=== PATIENT | female | born 1940 | race Caucasian/White ===

== ENCOUNTER 2021-04-06 20:44 | Observation (INO) | payer OTHER ==
[2021-04-06 21:54] LABS: Absolute Lymphocytes (CBC) 1.2 K/uL (0.7-4.9); Basophils % 0.4 % (0-1.3); Hematocrit 21.6 % (36.0-45.0); Lymphocytes % 25.4 % (15.3-44.8); MPV 7.8 fL (7.6-11.3); RBC Red Blood Cell Count 2.41 M/uL (3.86-4.86)
[2021-04-06 22:00] LABS: Urine Blood Negative (Negative); Urine Glucose Negative (Negative); Urine Protein Trace (Negative); Urine Specific Gravity 1.025 (1.005-1.030); Urine pH 5.5 (5.0-7.0)
[2021-04-06 22:09] LABS: Urine Bacteria 20-50 /HPF (<20); Urine RBC <5 /HPF (NONE SEEN)
[2021-04-06 22:09] LABS: ALT/SGPT 23 U/L (12-78); AST/SGOT 15 U/L (15-37); Albumin 3.1 g/dL (3.4-5.0); Alkaline Phosphatase 74 U/L (45-117); BUN Blood Urea Nitrogen 19 mg/dL (7-18); Bicarbonate 26 mmol/L (21-32); Bilirubin Direct < 0.1 mg/dL (0-0.2); Bilirubin Total 0.2 mg/dL (0.2-1.0); Glucose Level 102 mg/dL (74-106); Lipase 239 U/L (73-393); Potassium 4.1 mmol/L (3.5-5.1); Protein, Total 6.9 g/dL (6.4-8.2); Sodium Level 140 mmol/L (136-145)
--- NOTE | 2021-04-07 | ER ---
Nurse's Notes Formerly [facility] Name: Darlin Negrete Age: 80 yrs Sex: Female : 1940 Arrival Date: 04/06/2021 Time: 20:53 Bed 17 Private MD: Diagnosis: GI Bleed/ Gastrointestinal hemorrhage, unspecified;Anemia, unspecified Presentation: 04/06 20:57 Chief complaint: Patient states: right lower abdominal pain that started a few days em ago, recently had an US that showed cyst on kidney, unknown which side, denies N/V or fever. Coronavirus screen: Vaccine status: Patient reports receiving the 2nd dose of the covid vaccine. Ebola Screen: Patient negative for fever greater than or equal to 101.5 degrees Fahrenheit, and additional compatible Ebola Virus Disease symptoms Patient denies exposure to infectious person. Patient denies travel to an Ebola-affected area in the 21 days before illness onset. No symptoms or risks identified at this time. Initial Sepsis Screen: Does the patient meet any 2 criteria? No. Patient's initial sepsis screen is negative. Does the patient have a suspected source of infection? No. Patient's initial sepsis screen is negative. Risk Assessment: Do you want to hurt yourself or someone else? Patient reports no desire to harm self or others. Onset of symptoms was April 06, 2021. 20:57 Method Of Arrival: Ambulatory em 20:57 Acuity: MELANIE 3 em Historical: - Allergies: 21:01 No Known Allergies; em - Home Meds: 21:01 atorvastatin 80 mg oral tab 1 tab once daily [Active]; metoprolol tartrate 25 mg Oral em tab 1 tab once daily [Active]; - PMHx: 21:01 Hypertensive disorder; em - PSHx: 21:01 None; em - Immunization history:: Adult Immunizations up to date, Client reports receiving the 2nd dose of the Covid vaccine. - Social history:: Smoking status: Patient denies any tobacco usage or history of. Screenin:00 Abuse screen: Denies threats or abuse. Nutritional screening: No deficits noted. kc4 Tuberculosis screening: No symptoms or risk factors identified. Never had TB. Possible symptoms: None Risk factors: None. Fall Risk None identified. No fall in past 12 months (0 pts). No secondary diagnosis (0 pts). IV access (20 points). Ambulatory Aid- None/Bed Rest/Nurse Assist (0 pts). Gait- Normal/Bed Rest/Wheelchair (0 pts) Mental Status- Oriented to own ability (0 pts). Total Foster Fall Scale indicates No Risk (0-24 pts). Assessment: 22:29 General: Appears in no apparent distress. comfortable, well developed, well nourished, kc4 Behavior is calm, cooperative, appropriate for age, Reports Denies fever, feeling ill, fatigue, chills. Pain: Complains of pain in abdomen Pain does not radiate. Pain at worst was 4 out of 10 on a pain scale. level that patient reports is acceptable is 4 out of 10 on a pain scale. Quality of pain is described as dull, sharp, Pain began gradually, Is intermittent, Alleviated by medications, rest, repositioning, relaxation, Aggravated by increased activity, repositioning, Noted to be Current management Goal of pain control is to. Neuro: No deficits noted. Cardiovascular: No deficits noted. Respiratory: No deficits noted. GI: Bowel sounds present X 4 quads. Abd is soft Abdomen is tender to palpation in right lower quadrant. : No deficits noted. EENT: No deficits noted. Derm: No deficits noted. Derm: No deficits noted. Musculoskeletal: No deficits noted. Vital Signs: 20:57 BP 107 / 56; Pulse 81; Resp 18; Temp 98.0; Pulse Ox 100% on R/A; Weight 63.5 kg; Height em 5 ft. 5 in. (165.10 cm); 22:45 BP 119 / 72; Pulse 72; Resp 18; Temp 98.8(O); Pulse Ox 100% on R/A; Pain 3/10; kc4 04/07 00:01 BP 118 / 56; Pulse 70; Resp 18; Temp 98.8; Pulse Ox 100% on R/A; Pain 3/10; kc4 12:18 BP 127 / 75; Pulse 77; Resp 17; Temp 98.7; Pulse Ox 100% ; tr6 04/06 20:57 Body Mass Index 23.30 (63.50 kg, 165.10 cm) em ED Course: 04/06 20:53 Patient arrived in ED. cf2 21:01 Triage completed. em 21:01 Arm band placed on. em 21:10 Clinton Ozuna PA is PHCP. cp 21:10 Satya Leon MD is Attending Physician. cp 21:25 Maida Muro is Primary Nurse. kc4 22:14 Urine Culture Sent. kc4 22:15 Inserted saline lock: 20 gauge in right antecubital area, using aseptic technique. kc4 22:43 CT Abd/Pelvis - IV Contrast Only In Process Unspecified. EDMS 22:52 Patient has correct armband on for positive identification. Placed in gown. Bed in low kc4 position. Call light in reach. Side rails up X 1. 23:30 No provider procedures requiring assistance completed. kc4 04/07 00:53 Saeed Lucio DO is Hospitalizing Provider. cp 01:28 Troponin (emerg Dept Use Only) Sent. kc4 01:28 Magnesium Sent. kc4 Administered Medications: 01:03 Not Given (Physician Discretion): ProTONIX (pantoprazole) 8 mg/hr IV at 25 ml/hr la1 continuous; (Standard dilution is 80 mg in 250 mL NS) 01:28 Drug: ProTONIX (pantoprazole) 40 mg Route: IVP; Site: right antecubital; kc4 Output: 04/06 22:00 Urine: 400ml (Voided); Total: 400ml. kc4 Outcome: 04/07 00:00 Discharge ordered by MD. cp 00:54 Decision to Hospitalize by Provider. cp 13:48 Patient left the ED. iw Signatures: Dispatcher [employer] EDAR Charli Rod, RN RN Supriya Gandhi RN RN iw Clinton Ozuna PA PA cp Alexandra Ruvalcaba 2 Camryn Vaca RN RN tr6 Maida Muro kc4 Donato Francisco [facility]
--- NOTE | 2021-04-07 00:01 | EDPHYS ---
Physician Documentation [facility] Name: Darlin Negrete Age: 80 yrs Sex: Female : 1940 Arrival Date: 04/06/2021 Time: 20:53 Bed 17 Private MD: ED Physician Satya Leon HPI: 04/06 22:00 This 80 yrs old Female presents to ER via Ambulatory with complaints of cp Abdominal Pain. 22:00 The patient presents with abdominal pain right lower quadrant. cp 22:00 Onset: The symptoms/episode began/occurred few days ago. cp 22:00 The symptoms radiate to the right flank. Associated signs and symptoms: Pertinent cp negatives: nausea and vomiting, blood in stools, constipation, diarrhea, dysuria, fever. The symptoms are described as waxing/waning. Severity of pain: in the emergency department the pain has resolved and did so earlier today. Historical: - Allergies: 21:01 No Known Allergies; em - Home Meds: 21:01 atorvastatin 80 mg oral tab 1 tab once daily [Active]; metoprolol tartrate 25 mg Oral em tab 1 tab once daily [Active]; - PMHx: 21:01 Hypertensive disorder; em - PSHx: 21:01 None; em - Immunization history:: Adult Immunizations up to date, Client reports receiving the 2nd dose of the Covid vaccine. - Social history:: Smoking status: Patient denies any tobacco usage or history of. ROS: 22:05 Abdomen/GI: Positive for abdominal pain, of the anterior aspect of right lateral cp abdomen and right lower quadrant. 22:05 Eyes: Negative for injury, pain, redness, and discharge. cp 22:05 Constitutional: Negative for body aches, chills, fever, poor PO intake. 22:05 ENT: Negative for ear pain, sore throat, difficulty swallowing, difficulty handling secretions. 22:05 Cardiovascular: Negative for chest pain, edema, palpitations. 22:05 Respiratory: Negative for cough, shortness of breath, wheezing. 22:05 Skin: Negative for rash. 22:05 Neuro: Negative for altered mental status, headache, syncope, weakness. 22:05 All other systems are negative. Exam: 22:10 Constitutional: The patient appears in no acute distress, alert, awake, comfortable, cp non-toxic, well developed, well nourished. 22:10 Head/Face: Normocephalic, atraumatic. cp 22:10 Eyes: Periorbital structures: appear normal, Conjunctiva: normal, no exudate, no injection, Sclera: no appreciated abnormality, Lids and lashes: appear normal, bilaterally. 22:10 ENT: External ear(s): are unremarkable, Nose: is normal, Mouth: Lips: moist, Oral mucosa: moist, Posterior pharynx: Airway: no evidence of obstruction, patent. 22:10 Chest/axilla: Inspection: normal, Palpation: is normal, no crepitus, no tenderness. 22:10 Cardiovascular: Rate: normal, Rhythm: regular. 22:10 Respiratory: the patient does not display signs of respiratory distress, Respirations: normal, no use of accessory muscles, no retractions, labored breathing, is not present, Breath sounds: are clear throughout, no decreased breath sounds, no stridor, no wheezing. 22:10 Abdomen/GI: Inspection: abdomen appears normal, Bowel sounds: active, all quadrants, Palpation: soft, in all quadrants, mild abdominal tenderness, in the right lower quadrant, rebound tenderness, is not appreciated, involuntary guarding, is not appreciated. 22:10 Back: CVA tenderness, is absent. 22:10 Skin: cellulitis, is not appreciated, no rash present. Vital Signs: 20:57 BP 107 / 56; Pulse 81; Resp 18; Temp 98.0; Pulse Ox 100% on R/A; Weight 63.5 kg; Height em 5 ft. 5 in. (165.10 cm); 22:45 BP 119 / 72; Pulse 72; Resp 18; Temp 98.8(O); Pulse Ox 100% on R/A; Pain 3/10; kc4 04/07 00:01 BP 118 / 56; Pulse 70; Resp 18; Temp 98.8; Pulse Ox 100% on R/A; Pain 3/10; kc4 12:18 BP 127 / 75; Pulse 77; Resp 17; Temp 98.7; Pulse Ox 100% ; tr6 04/06 20:57 Body Mass Index 23.30 (63.50 kg, 165.10 cm) em MDM: 04/06 21:23 Patient medically screened. cp 22:30 Differential diagnosis: appendicitis, bowel obstruction, gastritis, non-specific abd cp pain, Ureterolithiasis, urinary tract infection, colitis. 04/07 00:30 Counseling: I had a detailed discussion with the patient and/or guardian regarding: the cp historical points, exam findings, and any diagnostic results supporting the discharge/admit diagnosis, lab results, radiology results, the need for further work-up and treatment in the hospital. 00:30 Physician consultation: Donato Francisco was called at 00:30, was contacted at 00:30, regarding admission, to the medical/surgical unit. patient's condition, and will see patient in ED, shortly, would like consultation with Dr. Seaman. 00:35 Data reviewed: vital signs, nurses notes, lab test result(s), radiologic studies, CT cp scan, I have discussed the patient's presentation/case with the attending Emergency Department Physician; and as a result, I will admit patient. 04/06 21:24 Order name: Basic Metabolic Panel; Complete Time: 00:08 04/07 00:08 Interpretation: Normal except: CL 112; BUN 19; GFR 41. 04/06 21:24 Order name: CBC with Diff; Complete Time: 23:07 04/07 00:08 Interpretation: Normal except: RBC 2.41; HGB 7.2; HCT 21.6. 04/06 21:24 Order name: Hepatic Function; Complete Time: 00:08 04/06 21:24 Order name: Lipase; Complete Time: 00:08 04/06 21:24 Order name: Urine Microscopic Only; Complete Time: 00:08 04/06 21:59 Order name: Urine Dipstick-Ancillary; Complete Time: 00:08 [facility] 04/06 22:10 Order name: Urine Culture [facility] 04/07 00:37 Order name: PT-INR 04/07 00:37 Order name: Ptt, Activated; Complete Time: 17:39 04/07 00:37 Order name: Type And Screen 04/07 00:37 Order name: Troponin (emerg Dept Use Only); Complete Time: 17:39 04/07 00:37 Order name: Magnesium 04/07 02:11 Order name: Protime (+INR); Complete Time: 17:39 [facility] 04/07 02:20 Order name: Magnesium; Complete Time: 17:39 [facility] 04/06 21:24 Order name: IV Saline Lock; Complete Time: 21:39 04/06 21:24 Order name: CT Abd/Pelvis - IV Contrast Only 04/07 00:37 Order name: EKG; Complete Time: 00:38 cp 04/07 03:21 Order name: ABO/RH no charge; Complete Time: 17:39 [facility] 04/07 03:34 Order name: CBC with Automated Diff; Complete Time: 17:39 [facility] 04/07 04:07 Order name: Comprehensive Metabolic Panel; Complete Time: 17:39 [facility] 04/07 04:07 Order name: T4 Free; Complete Time: 17:39 [facility] 04/07 04:07 Order name: Thyroid Stimulating Hormone; Complete Time: 17:39 [facility] 04/07 09:30 Order name: Hematocrit [facility] 04/07 09:30 Order name: Hemoglobin [facility] 04/07 10:05 Order name: Hemoglobin; Complete Time: 17:39 [facility] 04/07 10:05 Order name: Hematocrit; Complete Time: 17:39 [facility] 04/07 11:30 Order name: CORONAVIRUS [facility] 04/07 12:26 Order name: SARS-COV-2 RT PCR; Complete Time: 17:39 [facility] 04/06 21:24 Order name: Labs collected and sent; Complete Time: 21:39 04/06 21:24 Order name: Urine Dipstick-Ancillary (obtain specimen); Complete Time: 22:14 04/07 00:37 Order name: EKG - Nurse/Tech 04/07 01:03 Order name: NPO; Complete Time: 08:17 la1 04/07 03:24 Order name: Transfuse; Complete Time: 09:31 cp Administered Medications: 01:03 Not Given (Physician Discretion): ProTONIX (pantoprazole) 8 mg/hr IV at 25 ml/hr la1 continuous; (Standard dilution is 80 mg in 250 mL NS) 01:28 Drug: ProTONIX (pantoprazole) 40 mg Route: IVP; Site: right antecubital; kc4 Disposition Summary: 04/07/21 00:54 Hospitalization Ordered Hospitalization Status: Inpatient Admission cp Provider: Saeed Lucio cp Condition: Stable(04/07/21 00:54) cp Problem: new(04/07/21 00:54) cp Symptoms: have improved(04/07/21 00:54) cp Bed/Room Type: Standard cp Location: [facility] ER HOLD(04/07/21 02:36) cg Room Assignment: ERHOLD-(04/07/21 02:36) cg Diagnosis - GI Bleed/ Gastrointestinal hemorrhage, unspecified cp - Anemia, unspecified cp Forms: - Medication Reconciliation Form cp - SBAR form cp Addendum: 04/19/2021 19:02 Co-signature as Attending Physician, Satya schmidt Signatures: Dispatcher [employer] EDSatya Springer MD MD pkl Munoz, Edgar, RN RN em Donato Francisco, FUNCTIONAL TESTER-C FUNCTIONAL TESTER-Cla1 Clinton Ozuna PA PA cp Garcia, Cindy, RN RN Maida Mayfield kc4 Corrections: (The following items were deleted from the chart) 04/07 00:01 00:00 Right lower quadrant abdominal swelling, mass and lump cp cp 00:20 00:00 Home cp cp 00:20 00:00 an ongoing problem cp cp 00:20 00:00 have improved cp cp 00:20 00:00 Stable cp cp 00:20 00:01 Intra-abdominal and pelvic swelling, mass and lump, unspecified site cp cp 02:36 00:54 Telemetry/MedSurg (Inpatient) cp cg 02:36 00:54 cp cg 03:27 04/06 23:05 Abdomen/GI: Positive for abdominal pain, of the anterior aspect of right cp lateral abdomen and right lower quadrant, cp
--- NOTE | 2021-04-07 01:16 | P.HP ---
Certification for Inpatient Patient admitted to: Inpatient With expected LOS: >2 Midnights Patient will require the following post-hospital care: None Practitioner: I am a practitioner with admitting privileges, knowledge of patient current condition, hospital course, and medical plan of care. Services: Services provided to patient in accordance with Admission requirements found in Title 42 Section 412.3 of the Code of Federal Regulations Patient History Date of Service: 04/07/21 Primary Care Provider: Dr. Chew Reason for admission: Anemia, GI bleed, colonic mass History of Present Illness: 80-year-old female with history of hypertension, hyperlipidemia, dementia presents emergency department for right-sided abdominal pain. Patient reports ongoing intermittent pain over the course of last 3 weeks. Patient also reports that stool has been formed but dark intermittently for "many years now". Patient was evaluated in the emergency department labs were significant for normocytic anemia with hemoglobin 7.2 hematocrit 21.6 chloride [address]UN [address] abdomen pelvis with contrast demonstrates intraluminal mass in the proximal ascending colon adjacent to the ileocecal valve concerning for primary colonic neoplasm no bowel obstruction or perforation adjacent shotty ileocecal lymph nodes present mass measures approximately 5 x 5 cm. Patient reports last bowel movement was yesterday and normal for her although dark. ED provider wishes to admit for anemia, GI bleed, colonic mass. Vital signs stable at this time. - Past Medical/Surgical History -: Hypertension -: Hyperlipidemia -: Dementia -: None Psychosocial/ Personal History: Patient is retired lives at home with - Family History Father -: Heart disease Mother -: Heart disease - Social History Smoking Status: Never smoker Alcohol use: No CD- Drugs: No Caffeine use: Yes Place of Residence: Home Review of Systems 10-point ROS is otherwise unremarkable Gastrointestinal: Abdominal Pain, Other ("Dark stool") Physical Examination - Physical Exam General: Alert, In no apparent distress, Oriented x3 HEENT: Atraumatic, PERRLA, Mucous membr. moist/pink, EOMI, Sclerae nonicteric Neck: Supple, 2+ carotid pulse no bruit, No LAD, Without JVD or thyroid abnormality Respiratory: Clear to auscultation bilaterally, Normal air movement Cardiovascular: Regular rate/rhythm, Normal S1 S2 Gastrointestinal: Normal bowel sounds, No tenderness Musculoskeletal: No tenderness Integumentary: No rashes Neurological: Normal gait, Normal speech, Normal strength at 5/5 x4 extr, Normal tone, Normal affect Lymphatics: No axilla or inguinal lymphadenopathy - Studies Laboratory Data (last 24 hrs) 04/06/21 21:35: WBC 4.60, Hgb 7.2 L, Hct 21.6 L, Plt Count 347 04/06/21 21:35: Sodium 140, Potassium 4.1, BUN 19 H, Creatinine 1.26, Glucose 102, Total Bilirubin 0.2, AST 15, ALT 23, Alkaline Phosphatase 74, Lipase 239 Assessment and Plan - Plan Assessment: Acute blood loss anemia secondary to 5 x 5 cm intraluminal ascending colonic mass 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 Patient reports last colonoscopy was approximately 10 years ago. Masses without obstruction, vital signs are stable. Will consult gastroenterology, patient can likely be discharged after anemia is corrected for follow-up on outpatient basis with colorectal surgery/oncology/GI. Patient and family amenable to plan. Hypertension: Obtain and continue home medications Hyperlipidemia:Obtain and continue home medications Dementia:Obtain and continue home medications DVT PPX: SCD Code status: Full Discharge Plan: Home Plan to discharge in: 48 Hours - Advance Directives Does patient have a Living Will: No Does patient have a Durable POA for Healthcare: No - Code Status/Comfort Care Code Status Assessed: Yes (Full code) Critical Care: No Time Spent Managing Pts Care (In Minutes): 55
[2021-04-07] MEDS ORDERED: SODIUM CHLORIDE 0.9% 10ML INJ IV PRN (01:27)
[2021-04-07] MEDS ORDERED: FENTANYL CITR 100 MCG/2 ML IV PRN (01:27)
[2021-04-07] MEDS ORDERED: ONDANSETRON 4 MG/2 ML VIAL IV PRN (01:27)
[2021-04-07] MEDS ORDERED: PANTOPRAZOLE 40 MG INJ ONE (01:31)
[2021-04-07] MEDS ORDERED: D5 0.45 NS 1,000 ML IV SCH (02:00)
[2021-04-07 02:07] LABS: Protime INR 1.09
[2021-04-07 02:20] LABS: Magnesium 2.3 mg/dL (1.8-2.4); Troponin (Emerg Dept Use Only) < 0.02 ng/mL (0.0-0.045)
[2021-04-07 03:26] LABS: Absolute Lymphocytes (CBC) 1.3 K/uL (0.7-4.9); Basophils % 0.4 % (0-1.3); Lymphocytes % 33.1 % (15.3-44.8); MPV 8.3 fL (7.6-11.3); RBC Red Blood Cell Count 2.24 M/uL (3.86-4.86)
[2021-04-07 03:34] LABS: Hematocrit 20.2 % (36.0-45.0)
[2021-04-07] MEDS ORDERED: NA CHLORIDE 0.9% 100 ML ONE (03:51)
[2021-04-07 04:05] LABS: Albumin 2.8 g/dL (3.4-5.0); Bilirubin Total 0.2 mg/dL (0.2-1.0); Protein, Total 6.2 g/dL (6.4-8.2)
[2021-04-07 04:07] LABS: Thyroid Stimulating Hormone 3.82 uIU/mL (0.360-3.740)
[2021-04-07 05:49] VITALS: BMI 23.9
--- NOTE | 2021-04-07 06:33 | P.PN ---
Subjective Date of Service: 04/07/21 Primary Care Provider: Dr. Chew Chief Complaint: Anemia, GI bleed, colonic mass Subjective: Improving, Doing well, Demented Physical Examination - Vital Signs Temperature: 98.3 F Blood Pressure: 115/56 Pulse: 68 Respirations: 16 Pulse Ox (%): 100 - Studies Laboratory Data (last 24 hrs) 04/06/21 21:35: WBC 4.60, Hgb 7.2 L, Hct 21.6 L, Plt Count 347 04/06/21 21:35: Sodium 140, Potassium 4.1, BUN 19 H, Creatinine 1.26, Glucose 102, Total Bilirubin 0.2, AST 15, ALT 23, Alkaline Phosphatase 74, Lipase 239 Assessment & Plan Discharge Plan: Home Plan to discharge in: 24 Hours Physician Review Additional Text: COVID: negative CT scan: COMPARISON: No prior exams provided for comparison. FINDINGS: There appears to be an intraluminal mass in the proximal ascending colon adjacent to the ileocecal valve. This measures approximately 5 x 5 cm. There are a few adjacent shotty ileocolic lymph nodes. The appendix is not visualized and may be surgically absent. Descending colonic diverticulosis without diverticulitis. No other bowel wall thickening. No bowel obstruction, pneumatosis, free intraperitoneal air, abscess, or ascites. Hepatic and renal cysts. Punctate gallstone without evidence of acute cholecystitis. The lung bases, pancreas, spleen, adrenal glands, uterus, adnexa, and urinary bladder are normal. Atherosclerosis without abdominal aortic aneurysm or retroperitoneal hemorrhage. Chronic degenerative changes present throughout the spine without acute fracture or aggressive osseous lesion. IMPRESSION: Intraluminal mass in the proximal ascending colon adjacent to the ileocecal valve, concerning for a primary colonic neoplasm. No bowel obstruction or perforation. Adjacent shotty ileocolic lymph nodes. No other acute findings in the abdomen or pelvis. Physical Exam: General: Alert, In no apparent distress, Oriented x3 HEENT: Atraumatic, PERRLA, Mucous membr. 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 Hemoglobin improved to 9.6. Spoke to who takes care of patient. reports that he plans to take her to [facility] for further evaluation and work-up. This includes a GI evaluation and surgical. Patient stable at this time. Case discussed with GI and locally. Agree with plan to discharge patient. Patient may continue with multivitamin with iron daily. I have made arrangements for the patient to follow-up with her PCP on Saturday at 4:00 next week. From there the PCP can make a referral to [facility]. If symptoms worsen patient may return to the hospital or to [facility] for further evaluation. Hypertension: Obtain and continue home medications Hyperlipidemia:Obtain and continue home medications Dementia:Obtain and continue home medications DVT PPX: SCD Code status: Full Discharge Plan: Home Time Spent Managing Pts Care (In Minutes): 55
[2021-04-07] MEDS ORDERED: D5 0.45 NS 1,000 ML IV ONE (06:36)
[2021-04-07] MEDS ORDERED: PANTOPRAZOLE 40 MG INJ IVP SCH (09:00)
[2021-04-07 10:03] LABS: Hematocrit 28.9 % (36.0-45.0)
--- NOTE | 2021-04-07 10:39 | RAD REPORT ---
EXAM DESCRIPTION: CT - Abdomen Pelvis W Contrast - 04/06/2021 10:43 pm CLINICAL HISTORY: 80 years Female right lower abdomen pain TECHNIQUE: Contiguous axial images obtained through the abdomen and pelvis following administration of intravenous contrast. Coronal and sagittal reformatted images provided. This CT exam was performed according to our departmental dose-optimization program, which includes on e or more of the following dose reduction techniques: automated exposure control, adjustment of the m A and/or kV according to patient size, and/or use of iterative reconstruction technique. COMPARISON: No prior exams provided for comparison. FINDINGS: There appears to be an intraluminal mass in the proximal ascending colon adjacent to the i leocecal valve. This measures approximately 5 x 5 cm. There are a few adjacent shotty ileocolic lymph nodes. The appendix is not visualized and may be surgically absent. Descending colonic diverticulosis without diverticulitis. No other bowel wall thickening. No bowel ob struction, pneumatosis, free intraperitoneal air, abscess, or ascites. Hepatic and renal cysts. Punctate gallstone without evidence of acute cholecystitis. The lung bases, pancreas, spleen, adrenal glands, uterus, adnexa, and urinary bladder are normal. Atherosclerosis without abdominal aortic aneurysm or retroperitoneal hemorrhage. Chronic degenerative changes present throughout the spine without acute fracture or aggressive osseous lesion. IMPRESSION: Intraluminal mass in the proximal ascending colon adjacent to the ileocecal valve, cody rning for a primary colonic neoplasm. No bowel obstruction or perforation. Adjacent shotty ileocolic lymph nodes. No other acute findings in the abdomen or pelvis. Electronically signed by: Brit Mcbride MD 04/06/2021 11:14 PM CDT Due to temporary technical issues with the PACS/Fluency reporting system, reports are being signed by the in house radiologist without review as a courtesy to ensure prompt reporting. The interpreting r adiologist is fully responsible for the content of the report.
[2021-04-07 12:38] VITALS: BP 115/56; TEMP 98.3
--- NOTE | 2021-04-07 12:39 | P.DS ---
Admission Date: 04/07/21 Discharge Date: 04/07/21 Primary Care Provider: Dr. Melendrez Disposition: ROUTINE DISCHARGE Discharge Condition: GOOD Reason for Admission: Anemia, GI bleed, colonic mass Consultations: none Procedures: COVID: negative CT scan: COMPARISON: No prior exams provided for comparison. FINDINGS: There appears to be an intraluminal mass in the proximal ascending colon adjacent to the ileocecal valve. This measures approximately 5 x 5 cm. There are a few adjacent shotty ileocolic lymph nodes. The appendix is not visualized and may be surgically absent. Descending colonic diverticulosis without diverticulitis. No other bowel wall thickening. No bowel obstruction, pneumatosis, free intraperitoneal air, ab scess, or ascites. Hepatic and renal cysts. Punctate gallstone without evidence of acute cholecystitis. The lung bases, pancreas, spleen, adrenal glands, uterus, adnexa, and urinary bladder are normal. Atherosclerosis without abdominal aortic aneurysm or retroperitoneal hemorrhage. Chronic degenerative changes present throughout the spine without acute fracture or aggressive osseous lesion. IMPRESSION: Intraluminal mass in the proximal ascending colon adjacent to the ileocecal valve, concerning for a primary colonic neoplasm. No bowel obstruction or perforation. Adjacent shotty ileocolic lymph nodes. No other acute findings in the abdomen or pelvis. Medical problem list: Acute blood loss anemia secondary to 5 x 5 cm intraluminal ascending colonic mass suspected primary colonic neoplasm Hypertension Hyperlipidemia Dementia Brief History of Present Illness: 80-year-old female with history of hypertension, hyperlipidemia, dementia presents emergency department for right-sided abdominal pain. Patient reports ongoing intermittent pain over the course of last 3 weeks. Patient also reports that stool has been formed but dark intermittently for "many years now". Patient was evaluated in the emergency department labs were significant for normocytic anemia with hemoglobin 7.2 hematocrit 21.6 chloride 112 BUN [address] abdomen pelvis with contrast demonstrates intraluminal mass in the proximal ascending colon adjacent to the ileocecal valve concerning for primary colonic neoplasm. Patient was admitted for further evaluation and treatment. Hospital Course: Abdominal pain secondary to acute anemia related to CT abnormality showing intraluminal mass in the proximal ascending colon adjacent to the ileocecal valve. This was suspicious for primary colon cancer. The patient was found to be anemic. Upon further discussion with the , he had reported that she had been followed up by her PCP for abnormal lab. This was recent. The patient was admitted for treatment. Patient received 2 units of packed red blood cells. Hemoglobin now improved to 9.6. Patient without significant abdominal pain. No significant nausea, vomiting, rectal bleeding or melena. prefers that her work-up to be done at [facility]. He plans to make an appointment. No need for further intervention at this time. Patient will be discharged home. Patient will continue with multivitamin with iron daily. I have made arrangements for her to follow-up with her PCP next Saturday at 4 PM. PCP will need to help arrange for evaluation at [facility] by GI and surgery. Patient will likely require colonoscopy and likely subsequent surgical intervention. This was addressed in detail with the who agrees with plan of care. Patient with underlying hypertension, hyperlipidemia, and dementia. Patient overall stable. Patient may continue with her medications. Follow-up with her PCP to further address. Vital Signs/Physical Exam: Temp Pulse Resp BP Pulse Ox 98.3 F 68 16 115/56 L 100 04/07/21 12:37 04/07/21 12:37 04/07/21 12:37 04/07/21 12:37 04/07/21 12:37 General: Alert, In no apparent distress, Cooperative, Demented HEENT: Atraumatic Neck: Supple Respiratory: Clear to auscultation bilaterally, Normal air movement Cardiovascular: Normal pulses, Regular rate/rhythm Gastrointestinal: Normal bowel sounds, No ascites, No tenderness, No masses, No rebound, No guarding Musculoskeletal: No erythema, No tenderness, No warmth Integumentary: No tenderness/swelling Neurological: Normal speech, Normal strength at 5/5 x4 extr, Normal tone, [place] ia Laboratory Data at Discharge: WBC 4.00 K/uL (4.3-10.9) L 04/07/21 02:41 Hgb 9.6 g/dL (12.0-15.0) L D 04/07/21 09:55 Hct 28.9 % (36.0-45.0) L D 04/07/21 09:55 Plt Count 299 K/uL (152-406) 04/07/21 02:41 PT 12.6 SECONDS (9.5-12.5) H 04/07/21 01:26 INR 1.09 04/07/21 01:26 APTT 26.8 SECONDS (24.3-36.9) 04/07/21 01:26 Sodium 143 mmol/L (136-145) 04/07/21 02:41 Potassium 4.0 mmol/L (3.5-5.1) 04/07/21 02:41 BUN 17 mg/dL (7-18) 04/07/21 02:41 Creatinine 1.09 mg/dL (0.55-1.3) 04/07/21 02:41 Glucose 97 mg/dL (74-106) 04/07/21 02:41 Magnesium 2.3 mg/dL (1.8-2.4) 04/07/21 01:26 Total Bilirubin 0.2 mg/dL (0.2-1.0) 04/07/21 02:41 AST 13 U/L (15-37) L 04/07/21 02:41 ALT 22 U/L (12-78) 04/07/21 02:41 Alkaline Phosphatase 66 U/L (45-117) 04/07/21 02:41 Lipase 239 U/L (73-393) 04/06/21 21:35 Home Medications: Multivitamin with Iron [Daily Vitamin + Iron] 1 each PO DAILY #90 tablet 04/07/21 New Medications: Multivitamin with Iron [Daily Vitamin + Iron] 1 each PO DAILY #90 tablet Physician Discharge Instructions: Abdominal pain secondary to acute anemia related to CT abnormality showing intraluminal mass in the proximal ascending colon adjacent to the ileocecal valve. This was suspicious for primary colon cancer. The patient was found to be anemic. Upon further discussion with the , he had reported that she had been followed up by her PCP for abnormal lab. This was recent. The patient was admitted for treatment. Patient received 2 units of packed red blood cells. Hemoglobin now improved to 9.6. Patient without significant abdominal pain. No significant nausea, vomiting, rectal bleeding or melena. prefers that her work-up to be done at [facility]. He plans to make an appointment. No need for further intervention at this time. Patient will be discharged home. Patient will continue with multivitamin with iron daily. I have made arrangements for her to follow-up with her PCP next Saturday at 4 PM. PCP will need to help arrange for evaluation at [facility] by GI and surgery. Patient will likely require colonoscopy and likely subsequent surgical intervention. This was addressed in detail with the who agrees with plan of care. Patient may continue with a full liquid to GI soft diet Patient with underlying hypertension, hyperlipidemia, and dementia. Patient overall stable. Patient may continue with her medications. Follow-up with her PCP to further address. Diet: Full/soft Activity: Ad chrissy Followup: Francisco Barkley MD [Primary Care Provider] - Time spent managing pt's care (in minutes): 55
[2021-04-07 13:55] VITALS: O2SAT 100
== END 2021-04-07 13:56 | disposition home or self-care (01) ==
LOC: ER 20:44 → INTOOBSV 04-07 01:10 → ERHOLD 04-07 01:10
PROVIDERS: ADMIT Family Medicine; ATTEND Family Medicine
PROC: 30233N1 Transfusion of Nonautologous Red Blood Cells into Peripheral Vein, Percutaneous Approach (ICD-10-PCS; principal; 2021-04-07)
DX: K63.89 Other specified diseases of intestine (principal); D62 Acute posthemorrhagic anemia; K92.2 Gastrointestinal hemorrhage, unspecified; I10 Essential (primary) hypertension; E78.5 Hyperlipidemia, unspecified; F03.90 Unspecified dementia, unspecified severity, without behavioral disturbance, psychotic disturbance, mood disturbance, and anxiety; Z20.822 Contact with and (suspected) exposure to COVID-19; Z82.49 Family history of ischemic heart disease and other diseases of the circulatory system
CPT/HCPCS: 87088; 85025 ×2; 87086; 80048; 36415; 86900; 83735; 86850; 85610; 86901; 80076; 85730; 84443; 87077; 87186; 85018; 85014; 84484; 84439; 83690; 80053; 74177; 96374; 99284; 36430; U0003; Q9967; C9113; P9016 ×2; J7799; 81003; 81015

== ENCOUNTER → 2023-09-08 | Emergency (ER) | payer OTHER ==
[~2023-09-08] MED LIST: ACETAMINOPHEN 325 MG TABLET ONE
--- OUTSIDE RECORDS SUMMARY | 2023-09-08 12:13 | XMS REPORT | Clinical Summary ---
Author Name Unknown Organization [facility] [place] Address [address] [place] [address] Care Team Providers Care Black Pickler Name Role Phone Ariel Velarde MD Primary Care Provider Gaurang Vora MD Unavailable Zaida Sanchez MD Unavailable [phone] Emerald Palomo MD Unavailable + [phone] Gaurang Ayala MD Primary Care Provider [phone] Allergies No known active allergies Medications Medication Sig Dispensed Refills Start Date End Date Status metoprolol succinate (TOPROL XL) 25 mg 24 hr tablet TAKE 1 TABLET BY MOUTH EVERY DAY 0 02/13/2021 Active atorvastatin (LIPITOR) 80 mg tablet TAKE 1 TABLET BY MOUTH EVERY DAY AT NIGHT 0 02/23/2021 Active rivastigmine (EXELON) 9.5 mg/[address] 1 patch (9.5 mg/day patch) on the skin daily. 0 01/17/2021 Active multivitamin capsule Take 1 capsule by mouth daily. 0 Active omega-3 fatty acids/fish oil (fish oil-omega-3 fatty acids) 300-1,000 mg capsule Take 2 capsules (2 g) by mouth daily. 0 Active ascorbic Acid (VITAMIN C) 500 mg cpER 0 08/26/2019 Active cholecalciferol, vitamin D3, (VITAMIN D3) 5,000 units tab tablet 0 08/26/2019 08/08/2023 Disconti nued polyethylene glycol-electrolyte s (NULYTELY) 420 g solutionIndication s:Colonoscopy planned Mix as directed and drink as directed. 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 - GI Medical Oncology [id number] [address] [place] [phone] Gaurang Ayala MD Nguyen, Vincent, PA Mucinous adenocarcinoma of ascending colon (Primary Dx) 08/07/2023 Travel 05/07/2023 1:00 PM CDT Telemedicine [facility] - GI Medical Oncology [address] [place] [phone] Gaurang Ayala MD Mucinous adenocarcinoma of ascending colon (Primary Dx) 05/02/2023 9:20 AM CDT Ancillary Procedure [facility] [address] [address] Gaurang Ayala MD Mucinous adenocarcinoma of ascending colon 05/02/2023 Travel 02/08/2023 11:00 AM CDT Follow-Up [facility] - Colorectal Surg [address] [address] [place] [address] Ariel Velarde MD Skibber, John M, MD Encounter for follow-up examination after completed treatment for malignant neoplasm (Primary Dx); Mucinous adenocarcinoma of ascending colon; Personal history of other malignant neoplasm of colon 02/08/2023 Travel 11/29/2022 10:00 AM CDT Consult [facility] - GI, Hepatology & Nutrition [address] [address] [place] [address] Emerald Palomo MD History of partial resection of colon (Primary Dx); Mucinous adenocarcinoma of ascending colon 11/29/2022 Travel 11/02/2022 1:00 PM CDT Telemedicine [facility] - GI Medical Oncology [address] [address] [facility] [address] [place] [address] Gaurang Ayala MD Mucinous adenocarcinoma of ascending colon 11/01/2022 12:35 PM CDT Ancillary Procedure [facility] [address] [facility] [address] [place] [address] Brown Gonzalez PA Mucinous adenocarcinoma of ascending colon 11/01/2022 Travel 10/22/2022 2:30 PM CDT Telemedicine [facility] [address] [facility], 6th [place] [address] Ariel Velarde MD Mamlouk, Omar, MD Proteinuria, not otherwise specified (Primary Dx); Stage 3b chronic kidney disease; Primary hypertension; Metabolic bone disease 10/16/2022 [facility] [address] [facility], 7th [place] [address] Isabel Callaway MA Colonoscopy planned (Primary Dx) after 09/08/2022 Immunizations Name Administration Dates Next Due Pfizer SARS-CoV-2 Vaccination (Purple Cap) 05/05 Surgical History Surgery Date Site/Laterality Comments CT COLONOSCOPY FLX DX W/COLLJ SPEC WHEN PFRMD 05/15/2021 N/A Procedure: DIAGNOSTIC FLEXIBLE COLONOSCOPY PROXIMAL TO SPLENIC FLEXURE; Surgeon: Jewel Daniel MD; Location: MAIN ENDOSCOPY; Service: GASTROENTEROLOGY CT LAPAROSCOPY COLECTOMY PARTIAL W/ANASTOMOSIS 05/25/2021 Abdomen/Right Procedure: ROBOTIC ASSISTED COLECTOMY; Surgeon: Ariel Velarde MD; Location: MAIN OR; Service: COLON & RECTAL SURGERY Medical History Medical History Date Comments Hyperlipidemia 2017 Dementia due to Alzheimer's disease 2019 Unspecified lump in unspecified breast 1986 H/O: blood transfusion 05/25/2021 Chronic kidney disease Cancer Social History Tobacco Use Types Packs/Day Years Used Date Smoking Tobacco: Never Smokeless Tobacco: Never Alcohol Use Standard Drinks/Week Comments Never 0 (1 standard drink = 0.6 oz pur e alcohol) Sex and Gender Information Value Date Recorded Sex Assigned at Female 09/20/2021 5:29 PM SUPERVISORY GEOGRAPHER Gender Identity Female 09/20/2021 5:29 PM SUPERVISORY GEOGRAPHER Sexual Orientation Straight 09/20/2021 5: 29 PM SUPERVISORY GEOGRAPHER Job Start Date Occupation Industry Not on file Not on file Not on file Obstetrics History Last Filed Vital Signs Vital Sign Reading Time Taken Comments Blood Pressure 152/70 02/08/2023 10:20 AM CDT Pulse 61 02/08/2023 10:20 AM CDT Temperature 36.6 C (97.9 F) 02/08/2023 10:20 AM C DT Respiratory Rate 18 02/08/2023 10:20 AM CDT Oxygen Saturation 97% 02/08/2023 10:20 AM CDT Inhaled Oxygen Concentration - - Weight 57.4 kg (126 lb 8.7 oz) 05/02/2023 8:22 A M CDT Height - - Body Mass Index 22.28 11/24/2021 9:58 AM CDT Plan of Treatment Upcoming Encounters Date Type Department Care Team Description 10/16/2023 8:30 AM CDT Ancillary Procedure [facility] [address] [place] [id number] Brown Gonzalez PA [facility] [place] [address] 10/16/2023 11:30 AM CDT Lab MD [facility] [place] [facility] [address] [place] [address] Amaris Lanier PA [address] [place] [address] 10/18/2023 8:30 AM CDT Follow-Up [facility] - Colorectal Surg [address] [address] [place] [address] Amaris Lanier PA [facility] [place] [address] Alex Armando MD [address] [place] [id number] 03/18/2024 7:30 AM CDT Lab [facility] [address] [address] Brown Gonzalez PA [address] [place] [address] [id number] 03/19/2024 3:00 PM CDT Telemedicine [facility] - GI Medical Oncology [address] [address] [place] [phone] Gaurang Ayala MD [address] [place] [id number] Health Maintenance Due Date Last Done Comments COVID-19 Vaccination (-24 season) 2023 05/05/2021, 09/16/2020, 08/16/2020 Procedures Procedure Name Priority Date/Time Associated Diagnosis Comments .CBC Routine 08/07/2023 8:24 AM SUPERVISORY GEOGRAPHER Mucinous adenocarcinoma of ascending colon CARCINOEMBRYONIC ANTIGEN Routine 08/07/2023 8:24 AM SUPERVISORY GEOGRAPHER Mucinous adenocarcinoma of ascending colon COMPREHENSIVE METABOLIC PANEL Routine 08/07/2023 8:24 AM SUPERVISORY GEOGRAPHER Mucinous adenocarcinoma of ascending colon COMPLETE BLOOD COUNT W/ DIFFERENTIAL Routine 08/07/2023 8:24 AM SUPERVISORY GEOGRAPHER Mucinous adenocarcinoma of ascending colon CT CHEST ABDOMEN PELVIS W CONTRAST Routine 05/02/2023 9:43 AM CDT Mucinous adenocarcinoma of ascending colon FRACTIONATED BILIRUBIN Routine 8:13 AM CDT Mucinous adenocarcinoma of ascending colon TOTAL PROTEIN Routine 05/02/2023 8:13 AM CDT Mucinous adenocarcinoma of ascending colon ASPARTATE AMINOTRANSFERASE Routine 05/02/2023 8:13 AM CDT Mucinous adenocarcinoma of ascending colon ALANINE AMINOTRANSFERASE Routine 05/02/2023 8:13 AM CDT Mucinous adenocarcinoma of ascending colon ALKALINE PHOSPHATASE Routine 05/02/2023 8:13 AM CDT Mucinous adenocarcinoma of ascending colon ALBUMIN LEVEL Routine 05/02/2023 8:13 AM CDT Mucinous adenocarcinoma of ascending colon CALCIUM LEVEL Routine 05/02/2023 8:13 AM CDT Mucinous adenocarcinoma of ascending colon .GLOMERULAR FILTRATION RATE Routine 05/02/2023 8:13 AM CDT Mucinous adenocarcinoma of ascending colon SERUM CREATININE Routine 05/02/2023 8:13 AM CDT Mucinous adenocarcinoma of ascending colon ELECTROLYTE PANEL Routine 05/02/2023 8:1 3 AM CDT Mucinous adenocarcinoma of ascending colon BLOOD UREA NITROGEN Routine 05/02/2023 8:13 AM CDT Mucinous adenocarcinoma of ascending colon GLUCOSE LEVEL Routine 05/02/2023 8:13 AM CDT Mucinous adenocarcinoma of ascending colon DIFFERENTIAL Routine 05/02/2023 8:13 AM CDT Mucinous adenocarcinoma of ascending colon .CBC Routine 05/02/2023 8:13 AM CDT Mucinous adenocarcinoma of ascending colon CARCINOEMBRYONIC ANTIGEN Routine 05/02/2023 8:13 AM CDT Mucinous adenocarcinoma of ascending colon COMPREHENSIVE METABOLIC PANEL Routine 05/02/2023 8:13 AM CDT Mucinous adenocarcinoma of ascending colon COMPLETE BLOOD COUNT W/ DIFFERENTIAL Routine 05/02/2023 8:13 AM CDT Mucinous adenocarcinoma of ascending colon SCAN GENETIC TESTING RESULTS 03/15/2023 CARCINOEMBRYONIC ANTIGEN Routine 02/08/2023 8:45 AM CDT Mucinous adenocarcinoma of ascending colon Personal history of other malignant neoplasm of colon SCAN GENETIC TESTING RESULTS 12/12/2022 CT CHEST ABDOMEN PELVIS W CONTRAST Routine 11/01/2022 12:55 PM CDT Mucinous adenocarcinoma of ascending colon FRACTIONATED BILIRUBIN Routine 10:54 AM CDT Mucinous adenocarcinoma of ascending colon TOTAL PROTEIN Routine 11/01/2022 10:54 AM CDT Mucinous adenocarcinoma of ascending colon ASPARTATE AMINOTRANSFERASE Routine 11/01/2022 10:54 AM CDT Mucinous adenocarcinoma of ascending colon ALANINE AMINOTRANSFERASE Routine 11/01/2022 10:54 AM CDT Mucinous adenocarcinoma of ascending colon ALKALINE PHOSPHATASE Routine 11/01/2022 10:54 AM CDT Mucinous adenocarcinoma of ascending colon ALBUMIN LEVEL Routine 11/01/2022 10:54 AM CDT Mucinous adenocarcinoma of ascending colon CALCIUM LEVEL Routine 11/01/2022 10:54 AM CDT Mucinous adenocarcinoma of ascending colon .GLOMERULAR FILTRATION RATE Routine 11/01/2022 10:54 AM CDT Mucinous adenocarcinoma of ascending colon SERUM CREATININE Routine 11/01/2022 10:5 4 AM CDT Mucinous adenocarcinoma of ascending colon ELECTROLYTE PANEL Routine 11/01/2022 10: 54 AM CDT Mucinous adenocarcinoma of ascending colon BLOOD UREA NITROGEN Routine 11/01/2022 1 0:54 AM CDT Mucinous adenocarcinoma of ascending colon GLUCOSE LEVEL Routine 11/01/2022 10:54 AM CDT Mucinous adenocarcinoma of ascending colon DIFFERENTIAL Routine 11/01/2022 10:54 AM CDT Mucinous adenocarcinoma of ascending colon .CBC Routine 11/01/2022 10:54 AM CDT Mucinous adenocarcinoma of ascending colon MAGNESIUM LEVEL Routine 11/01/2022 10:54 AM CDT Stage 3b chronic kidney disease CARCINOEMBRYONIC ANTIGEN Routine 11/01/2022 10:54 AM CDT Mucinous adenocarcinoma of ascending colon COMPREHENSIVE METABOLIC PANEL Routine 11/01/2022 10:54 AM CDT Mucinous adenocarcinoma of ascending colon COMPLETE BLOOD COUNT W/ DIFFERENTIAL Routine 11/01/2022 10:54 AM CDT Mucinous adenocarcinoma of ascending colon after 09/08/2022 Results * (ABNORMAL) .CBC (08/07/2023 8:24 AM SUPERVISORY GEOGRAPHER) Only the most recent of3 resultswithin the time period is included. White Blood Cell 3.4(L) 4.1 - 10.5 K/uL 08/07/2023 8:32 AM [facility] Red Blood Cell 3.30(L) 3.99 - 5.46 M/uL 08/07/2023 8:32 AM [facility] Hemoglobin 10.5(L) 12.2 - 15.3 g/dL 08/07/2023 8:32 AM [facility] Hematocrit 33.0(L) 36.4 - 46.8 % 08/07/2023 8:32 AM [facility] Mean Cell Volume 100(H) 82 - 99 fL 08/07/2023 8:32 AM [facility] Mean Cell Hemoglobin 31.8 26.6 - 33.2 pg 08/07/2023 8:32 AM [facility] Mean Cell Hemoglobin Concentration 31.8 31.1 - 35.2 g/dL 08/07/2023 8:32 AM [facility] RDW-SD 49.0 37.5 - 49.7 fL 08/07/2023 8:32 AM [facility] Red Cell Diameter Width 13.2 11.6 - 15.5 % 08/07/2023 8:32 AM [facility] Platelet 150(L) 160 - 397 K/uL 08/07/2023 8:32 AM [facility] Mean Platelet Volume 10.9 9.1 - 12.6 fL 08/07/2023 8:32 AM [facility] Neutrophil % 60.7 43.2 - 72.7 % 08/07/2023 8:32 AM [facility] Lymphocyte % 28.1 16.8 - 46.2 % 08/07/2023 8:32 AM [facility] Monocyte % 9.4 5.1 - 12.5 % 08/07/2023 8:32 AM [facility] Eosinophil % 0.3(L) 0.4 - 6.3 % 08/07/2023 8:32 AM [facility] Basophil % 0.6 0.2 - 1.4 % 08/07/2023 8:32 AM [facility] IGRE % 0.9 0.1 - 1.5 % 08/07/2023 8:32 AM [facility] Comment:The IGRE% includes M etamyelocytes, Myelocytes and Promyelocytes. Neutrophil Abs 2.08 1.95 - 7.25 K/uL 08/07/2023 8:32 AM [facility] Lymphocyte Abs 0.96(L) 1.01 - 3.24 K/uL 08/07/2023 8:32 AM [facility] Monocyte Abs 0.32 0.24 - 0.85 K/uL 08/07/2023 8:32 AM [facility] Eosinophil Abs 0.01(L) 0.02 - 0.50 K/uL 08/07/2023 8:32 AM [facility] Basophil Abs 0.02 0.02 - 0.09 K/uL 08/07/2023 8:32 AM [facility] IG Abs 0.03 0.01 - 0.12 K/uL 08/07/2023 8:32 AM [facility] Blood Venipuncture / Unknown 08/07/2023 8:24 AM SUPERVISORY GEOGRAPHER 08/07/2023 8:25 AM SUPERVISORY GEOGRAPHER Brown ROWAN LAB BLOOD ORDERABLES [facility] [address] [facility], [facility] [address] [place] [address] * (ABNORMAL) Comprehensive Metabolic Panel (08/07/2023 8:24 AM SUPERVISORY GEOGRAPHER) Bilirubin Total 0.5 <=1.2 mg/dL 08/07/2023 8:57 AM [facility] Comment: Indocyanine Green (ICG) may cause falsely elevated bilirubin results. Total and direct bilirubin must not be measured from samples containing indocyanine green. False elevation of total bilirubin can be seen in patients with IgG concentrations above 28 g/L. This result was previously suppressed from the chart. Bilirubin Direct <0.2 <=0.3 mg/dL 08/07/2023 8:57 AM [facility] Comment: Indocyanine Green (ICG) may cause falsely elevated bilirubin results. Total and direct bilirubin must not be measured from samples containing indocyanine green. This result was previously suppressed from the chart. Bilirubin Indirect 2023 8:57 AM [facility] Comment:Unable to calculate Indirect Bilirubin result due to some parameters are outside reportable range eGFR 46(L) >=60 mL/min/1. 73 sq. m 08/07/2023 8:57 AM [facility] Comment: The eGFRcr is calculated with the 2020 CKD-EPI creatinine equation using creatinine, patient's age, and sex for adults 18 years of age and older. Other factors, especially muscle mass, may affect accuracy and need to be considered. According to the Kidney Disease: Improving Global Outcomes (KDIGO) CKD Work Group 2012 Clinical Practice Guideline, chronic kidney disease (CKD) is defined as the abnormalities of kidney structure or function, present for more than 3 months, with implications for health. CKD should be classified by cause, GFR category, and albuminuria category. KDIGO guidelines provide the following GFR categories. Stage / Description / GFR mL/min/1.73 m2: G1* / Normal or high / >= 90 G2* / Mildly decreased / 60-89 G3a / Mildly to moderately decreased / 45-59 G3b / Moderately to severely decreased / 30-44 G4 / Severely decreased / 15-29 G5 / Kidney failure / <15 *In the absence of evidence of kidney damage, neither G1 nor G2 fulfill criteria for CKD. Tot Protein 7.1 6.4 - 8.3 gm/dL 08/07/2023 8:57 AM [facility] Comment:This result was prev iously suppressed from the chart. Calcium Level Total 9.8 8.2 - 10.2 mg/dL 08/07/2023 8:57 AM [facility] Comment:This result was prev iously suppressed from the chart. Alkaline Phosphatase 54 35 - 104 U/L 08/07/2023 8:57 AM [facility] Comment:This result was prev iously suppressed from the chart. Albumin Level 4.2 3.5 - 5.2 gm/dL 08/07/2023 8:57 AM [facility] Comment:This result was prev iously suppressed from the chart. AST 28 <=32 U/L 08/07/2023 8:57 AM [facility] Comment:This result was prev iously suppressed from the chart. ALT 35(H) <=33 U/L 08/07/2023 8:57 AM [facility] Comment:This result was prev iously suppressed from the chart. Sodium Level 137 136 - 145 mmol/L 08/07/2023 8:57 AM [facility] Comment:This result was prev iously suppressed from the chart. Potassium Level 4.8(H) 3.4 - 4.5 mmol/L 08/07/2023 8:57 AM [facility] Comment:This result was prev iously suppressed from the chart. Chloride 104 98 - 107 mmol/L 08/07/2023 8:57 AM [facility] Comment:This result was prev iously suppressed from the chart. CO2 28 22 - 29 mmol/L 08/07/2023 8:57 AM [facility] Comment:This result was prev iously suppressed from the chart. Anion Gap 5 4 - 14 mmol/L 08/07/2023 8:57 AM [facility] Comment:This result was prev iously suppressed from the chart. Creatinine 1.19(H) 0.51 - 0.95 mg/dL 08/07/2023 8:57 AM [facility] Comment:This result was prev iously suppressed from the chart. BUN 18 6 - 23 mg/dL 08/07/2023 8:57 AM [facility] Comment:This result was prev iously suppressed from the chart. Glucose Level 97 70 - 99 mg/dL 08/07/2023 8:57 AM [facility] Comment: Effective 02/15/16, the glucose reference intervals have been updated based on [place] Diabetes Association guidelines (Standards of Medical Care in Diabetes 2016. Diabetes Care 2016; 39: S13-S22). Fasting blood glucose: Normal: 70-99 mg/dL Impaired fasting glucose (increased risk for diabetes or pre-diabetes): 100-125 mg/dL Diabetes mellitus: >/=126 mg/dL Random blood glucose: Normal: 70-199 mg/dL Note: Random glucose >100 mg/dL is associated with increased risk for diabetes. This result was previously suppressed from the chart. Blood Venipuncture / Unknown 08/07/2023 8:24 AM SUPERVISORY GEOGRAPHER 08/07/2023 8:25 AM SUPERVISORY GEOGRAPHER Brown ROWAN LAB BLOOD ORDERABLES Performing Organization Address City/State[facility] Co de Phone Number [facility] [address] [facility], [facility] [address] [place] [address] * (ABNORMAL) CEA (08/07/2023 8:24 AM SUPERVISORY GEOGRAPHER) Only the most recent of4 resultswithin the time period is included. Carcinoembryonic Antigen 5.8(H) <=3.8 ng/mL 08/07/2023 8:57 AM [facility] Blood Venipuncture / Unknown 08/07/2023 8:24 AM SUPERVISORY GEOGRAPHER 08/07/2023 8:25 AM SUPERVISORY GEOGRAPHER Narrative [place] - 08/07/2023 8:57 AM [facility] Reference Ranges (age 20-69 years): Non-smoker: 0.0 - 3.8 ng/mL Smoker: 0.0 - 5.5 ng/mL This test is measured by electrochemiluminescence immunoassay on [employer]ie [employer] immunoassay analyzers. Results obtained in different methods are not interchangeable. Brown ROWAN LAB BLOOD ORDERABLES [facility] LEAH [facility]UESADA [address] [facility], [facility] [address] [place] [address] * CT Chest Abdomen Pelvis with Contrast (05/02/2023 9:43 AM CDT) Only the most recent of2 resultswithin the time period is included. Anatomical Region Laterality Modality Abdomen, Pelvis, Chest Computed Tomography 05/02/2023 9:43 AM CDT Impressions 05/02/2023 10:12 AM CDT No definite evidence of recurrent or metastatic disease in the chest, abdomen, or pelvis. ACTIONABLE ITEMS/RECOMMENDATIONS: None. Narrative 05/02/2023 10:12 AM CDT Examination: CT CHEST ABDOMEN PELVIS W CONTRAST on 05/02/2023 9:43 AM. Clinical History: Mucinous adenocarcinoma of ascending colon. Indication: Cancer surveillance. Comparison: CT 11/01/2022 Technique: CT images of the chest, abdomen and pelvis with IV contrast Findings: CHEST: Lungs and Pleura: No new suspicious pulmonary nodule. Stable lower lobe calcified granuloma. Stable small lingular groundglass opacity (series 7 image 84). No consolidation. No pleural effusion. Cardiomediastinum: The heart is normal in size. No pericardial effusion. Lymph nodes: No enlarged lymph nodes. ABDOMEN AND PELVIS: Hepatobiliary: Similar scattered hepatic cystic foci and additional subcentimeter too small to characterize hypodensities. No biliary dilatation. No cholecystitis. Spleen: No splenomegaly. Pancreas: No mass or ductal dilatation. Adrenal Glands: Stable subcentimeter left adrenal nodule from 04/06/2021 (series 6 image 160), likely benign. No right adrenal nodules. Kidneys, Ureters, Bladder: No hydronephrosis. Bilateral renal cysts measuring up to 6.2 cm in the left kidney. Left superior pole 1 cm hyperdensity was previously lower attenuating on older exams such as 04/26/2021 and may represent a hemorrhagic/proteinaceous cyst (series 14 image 58). No bladder mass. Gastrointestinal Tract: No obstruction. Colonic diverticula. Right hemicolectomy. Colon containing ventral hernia without obstruction, sac measuring 6.1 x 2 x 6.8 cm (SI x AP x TV), neck measuring 5.9 cm. Pelvic Organs: Uterus present. No adnexal masses. Peritoneum/Retroperitoneum: No ascites. Lymph Nodes: No enlarged lymph nodes. MUSCULOSKELETAL: No suspicious skeletal lesion. Procedure Note Ernie Sheets MD - 05/02/2023 Examination: CT CHEST ABDOMEN PELVIS W CONTRAST on 05/02/2023 9:43 AM. Clinical History: Mucinous adenocarcinoma of ascending colon. Indication: Cancer surveillance. Comparison: CT 11/01/2022 Technique: CT images of the chest, abdomen and pelvis with IV contrast Findings: CHEST: Lungs and Pleura: No new suspicious pulmonary nodule. Stable lower lobecalcified granuloma. Stable small lingular groundglass opacity (series 7image 84). No consolidation. No pleural effusion. Cardiomediastinum: The heart is normal in size. No pericardial effusion. Lymph nodes: No enlarged lymph nodes. ABDOMEN AND PELVIS: Hepatobiliary: Similar scattered hepatic cystic foci and additionalsubcentimeter too small to characterize hypodensities. No biliarydilatation. No cholecystitis. Spleen: No splenomegaly. Pancreas: No mass or ductal dilatation. Adrenal Glands: Stable subcentimeter left adrenal nodule from 04/06/2021(series 6 image 160), likely benign. No right adrenal nodules. Kidneys, Ureters, Bladder: No hydronephrosis. Bilateral renal cystsmeasuring up to 6.2 cm in the left kidney. Left superior pole 1 cmhyperdensity was previously lower attenuating on older exams such as1 and may represent a hemorrhagic/proteinaceous cyst (series 14image 58). No bladder mass. Gastrointestinal Tract: No obstruction. Colonic diverticula. Righthemicolectomy. Colon containing ventral hernia without obstruction, sacmeasuring 6.1 x 2 x 6.8 cm (SI x AP x TV), neck measuring 5.9 cm. Pelvic Organs: Uterus present. No adnexal masses. Peritoneum/Retroperitoneum: No ascites. Lymph Nodes: No enlarged lymph nodes. MUSCULOSKELETAL: No suspicious skeletal lesion. IMPRESSION: No definite evidence of recurrent or metastatic disease in the chest,abdomen, or pelvis. ACTIONABLE ITEMS/RECOMMENDATIONS: None. Gaurang Ayala MD [facility] CT ORDERABLES * (ABNORMAL) .Serum Creatinine (05/02/2023 8:13 AM CDT) Only the most recent of2 resultswithin the time period is included. Creatinine 1.43(H) 0.51 - 0.95 mg/dL [place] Comment:Testing performed at [facility], [address] [place] [address], [place] [address] Blood 05/02/2023 8:13 AM CDT 05/02/2023 8:14 AM CDT Narrative [place] - 05/02/2023 8:56 AM CDT Schedule at [place] Gaurang Ayala MD LAB BLOOD ORDERABLES [address], [facility] [address] [place] [address] * (ABNORMAL) Glomerular Filtration Rate (05/02/2023 8:13 AM CDT) Only the most recent of2 resultswithin the time period is included. eGFR 37(L) >=60 mL/min/1.7 3 sq. m [place] Comment: The eGFRcr is calculated with the 2020 CKD-EPI creatinine equation using creatinine, patient's age, and sex for adults 18 years of age and older. Other factors, especially muscle mass, may affect accuracy and need to be considered. According to the Kidney Disease: Improving Global Outcomes (KDIGO) CKD Work Group 2012 Clinical Practice Guideline, chronic kidney disease (CKD) is defined as the abnormalities of kidney structure or function, present for more than 3 months, with implications for health. CKD should be classified by cause, GFR category, and albuminuria category. KDIGO guidelines provide the following GFR categories Stage Description GFR mL/min/1.73 m2 G1* Normal or high >= 90 G2* Mildly decreased 60-89 G3a Mildly to moderately decreased 45-59 G3b Moderately to severely decreased 30-44 G4 Severely decreased 15-29 G5 Kidney failure <15 *In the absence of evidence of kidney damage, neither G1 nor G2 fulfill criteria for CKD. Testing performed at [facility], [address] [place] [address], [place] [address] Blood 05/02/2023 8:13 AM CDT 05/02/2023 8:14 AM CDT Narrative [place] - 05/02/2023 8:56 AM CDT Schedule at [place] Gaurang Ayala MD LAB BLOOD ORDERABLES [address] [address] [place] [address] * Fractionated Bilirubin (05/02/2023 8:13 AM CDT) Only the most recent of2 resultswithin the time period is included. [facility] Bili Total 0.3 <=1.2 mg/dL [place] Comment: Indocyanine Green (ICG) may cause falsely elevated bilirubin results. Total and direct bilirubin must not be measured from samples containing indocyanine green. False elevation of total bilirubin can be seen in patients with IgG concentrations above 28 g/L. Testing performed at [facility], [address] [place] [address] Bili Direct <0.2 <=0.3 mg/dL [place] Comment: Indocyanine Green (ICG) may cause falsely elevated bilirubin results. Total and direct bilirubin must not be measured from samples containing indocyanine green. Testing performed at [facility], [address] [place] [address] Bili Indirect See Note 0.0 - 0.9 mg/dL [place] Comment: Unable to calculate Indirect Bilirubin result due to some parameters are outside reportable range Testing performed at [facility], [address] [place] [address] Blood 05/02/2023 8:13 AM CDT 05/02/2023 8:14 AM CDT Narrative [place] - 05/02/2023 8:57 AM CDT Schedule at [place] Gaurang Ayala MD LAB BLOOD ORDERABLES Performing Organization Address City/[facility]/ZIP Co de Phone Number [address] [phone] [place] [address] * (ABNORMAL) Differential (05/02/2023 8:13 AM CDT) Only the most recent of2 resultswithin the time period is included. [facility] Neutrophil % 54.9 43.2 - 72.7 % [place] Comment:All components of th e Differential performed at [facility], [address] [place] [address] Lymphocyte % 32.6 16.8 - 46.2 % [place] Comment:As part of the Diffe rential testing performed at [facility], [address] [place], [place] [id number] Monocyte % 11.6 5.1 - 12.5 % [place] Comment:As part of the Diffe rential testing performed at [facility], [address] [place] [address] Eosinophil % 0.2(L) 0.4 - 6.3 % [place] Comment:As part of the Diffe rential testing performed at [facility], [address] [place] [address] Basophil % 0.2 0.2 - 1.4 % [place] Comment:As part of the Diffe rential testing performed at [facility], [address] [place] [address] IGRE % 0.5 0.1 - 1.5 % [place] Comment: IGRE % count includes Metamyelocytes, Myelocytes, and Promyelocytes. As part of the Differential testing performed at [facility], [address] [place] [address] Neutrophil Abs 2.27 1.95 - 7.25 K/uL [place] Comment:As part of the Diffe rential testing performed at [facility], [address] [place] [address] Lymphocyte Abs 1.35 1.01 - 3.24 K/uL [place] Comment:As part of the Diffe rential testing performed at [facility], [address] [place] [address] Monocyte Abs 0.48 0.24 - 0.85 K/uL [place] Comment:As part of the Diffe rential testing performed at [facility], [address] [place] [address], [place] [address] Eosinophil Abs 0.01(L) 0.02 - 0.50 K/uL [place] Comment:As part of the Diffe rential testing performed at [facility], [address] [place] [address], [place] [address] Basophil Abs 0.01(L) 0.02 - 0.09 K/uL [place] Comment:As part of the Diffe rential testing performed at [facility], [address] [place] [address], [place] [address] IG Abs 0.02 0.01 - 0.12 K/uL [place] Comment:As part of the Diffe rential testing performed at [facility], [address] [place] [address], [place] [address] Blood 05/02/2023 8:13 AM CDT 05/02/2023 8:14 AM CDT [facility] - 05/02/2023 8:18 AM CDT Schedule at [place] Gaurang Ayala MD LAB BLOOD ORDERABLES MATT QUESADA [address], [facility] [address] [place] [address] * (ABNORMAL) BUN (05/02/2023 8:13 AM CDT) Only the most recent of2 resultswithin the time period is included. BUN 27(H) 6 - 23 mg/dL [place] Comment:Testing performed at [facility], [address] [place] [address] Blood 05/02/2023 8:13 AM CDT 05/02/2023 8:14 AM CDT [facility] - 05/02/2023 8:56 AM CDT Schedule at [place] Gaurang Ayala MD LAB BLOOD ORDERABLES [address], [address] [address] * ALT (05/02/2023 8:13 AM CDT) Only the most recent of2 resultswithin the time period is included. ALT 31 <=33 U/L [place] Comment:Testing performed at [facility], [address] [place] [address] Blood 05/02/2023 8:13 AM CDT 05/02/2023 8:14 AM CDT [facility] - 05/02/2023 8:56 AM CDT Schedule at [place] Gaurang Ayala MD LAB BLOOD ORDERABLES [address], [address] [address] * Aspartate Aminotransferase (05/02/2023 8:13 AM CDT) Only the most recent of2 resultswithin the time period is included. [facility] Signature AST 28 <=32 U/L [place] Comment:Testing performed at [facility], [address] [place] [address] Blood 05/02/2023 8:13 AM CDT 05/02/2023 8:14 AM CDT [facility] - 05/02/2023 8:56 AM CDT Schedule at [place] Gaurang Ayala MD LAB BLOOD ORDERABLES [address], [address] [address] * Total Protein (05/02/2023 8:13 AM CDT) Only the most recent of2 resultswithin the time period is included. [facility] Total Protein 6.9 6.4 - 8.3 g/dL [place] Comment:Testing performed at [facility], [address] [place] [address] Blood 05/02/2023 8:13 AM CDT 05/02/2023 8:14 AM CDT [facility] - 05/02/2023 8:56 AM CDT Schedule at [place] Gaurang Ayala MD LAB BLOOD ORDERABLES [address], [facility] [address] [place] [address] * Alkaline Phosphatase (05/02/2023 8:13 AM CDT) Only the most recent of2 resultswithin the time period is included. Alk Phos 48 35 - 104 U/L [place] Comment:Testing performed at [facility], [address] [place] [address] Blood 05/02/2023 8:13 AM CDT 05/02/2023 8:14 AM CDT [facility] - 05/02/2023 8:56 AM CDT Schedule at [place] Gaurang Ayala MD LAB BLOOD ORDERABLES [address] [address] [place] [address] * Glucose Level (05/02/2023 8:13 AM CDT) Only the most recent of2 resultswithin the time period is included. Glucose Level 97 70 - 99 mg/dL [place] Comment: Effective 02/15/16, the glucose reference intervals have been updated based on Citizen [place] Diabetes Association guidelines (Standards of Medical Care in Diabetes 2016. Diabetes Care 2016; 39: S13-S22). Fasting blood glucose: Normal: 70-99 mg/dL Impaired fasting glucose (increased risk for diabetes or pre-diabetes): 100- 125 mg/dL Diabetes mellitus: >/=126 mg/dL Random blood glucose: Normal: 70-199 mg/dL Note: Random glucose >100 mg/dL is associated with increased risk for diabetes Testing performed at [facility], [address] [place] [address] Blood 05/02/2023 8:13 AM CDT 05/02/2023 8:14 AM CDT [facility] - 05/02/2023 8:56 AM CDT Schedule at [place] Gaurang Ayala MD LAB BLOOD ORDERABLES [id number] [place] [address] * Calcium Level (05/02/2023 8:13 AM CDT) Only the most recent of2 resultswithin the time period is included. Calcium Lvl 9.3 8.4 - 10.2 mg/dL [place] Comment:Testing performed at [facility], [address] [place] [address] Blood 05/02/2023 8:13 AM CDT 05/02/2023 8:14 AM CDT [facility] - 05/02/2023 8:56 AM CDT Schedule at [place] Gaurang Ayala MD LAB BLOOD ORDERABLES [address] [address] * Albumin Level (05/02/2023 8:13 AM CDT) Only the most recent of2 resultswithin the time period is included. Albumin Lvl 4.3 3.5 - 5.2 gm/dL [place] Comment:Testing performed at [facility], [address] [place] [address] Blood 05/02/2023 8:13 AM CDT 05/02/2023 8:14 AM CDT [facility] - 05/02/2023 8:56 AM CDT Schedule at [place] Gaurang Ayala MD LAB BLOOD ORDERABLES Performing Organization Address [facility] Co de Phone Number [address] [id number] [place] [address] * Electrolyte Panel (05/02/2023 8:13 AM CDT) Only the most recent of2 resultswithin the time period is included. [facility] Signature Sodium Lvl 140 136 - 145 mEq/L [place] Comment:Testing performed at [facility], [address] [place] [address] Potassium Lvl 5.0 3.5 - 5.1 mEq/L [place] Comment:Testing performed at [facility], [address] [place] [address] Chloride 104 98 - 107 mEq/L [place] Comment:Testing performed at [facility], [address] [place] [address] CO2 23 22 - 29 mEq/L [place] Comment:Testing performed at [facility], [address] [place] [address] Anion Gap 13 4 - 14 mEq/L [place] Comment:Testing performed at [facility], [address] [place] [address] Blood 05/02/2023 8:13 AM CDT 05/02/2023 8:14 AM CDT Narrative [place] - 05/02/2023 8:56 AM CDT Schedule at [place] Gaurang Ayala MD LAB BLOOD ORDERABLES [address] [address] [place] [address] * SCAN GENETIC TESTING RESULTS (03/15/2023) Only the most recent of2 resultswithin the time period is included. Narrative 03/15/2023 Ordered by an unspecified provider. Provider Not In System SCANNED ORDERS * Magnesium Level (11/01/2022 10:54 AM CDT) Magnesium 2.0 1.6 - 2.6 mg/dL [place] Comment:Testing performed at [facility], [address] [facility], [place] [address] Blood 11/01/2022 10:5 4 AM CDT 11/01/2022 10:55 AM CDT Narrative [place] - 11/01/2022 12:00 PM CDT REGLC Satya Levi MD LAB BLOOD ORDERABLES [facility] [address] [facility], [facility] [address] [place] [address] after 09/08/2022 Advance Directives Latest Code Status on File Code Status Date Activated Date Inactivated Comments Full Code 05/25/2021 4:39 PM 05/31/2021 4:34 PM Care Teams Black Pickler Relationship Specialty Start Date End Date Ariel Velarde MD PCP - General Colorectal Surgery 04/07/21 08/07/23 Gaurang Ayala MD [address] [place] [address] PCP - General Gastrointestinal Medical Oncology 08/08/23 Gaurang Ayala MD [address] [place] [address] Consulting Physician Gastrointestinal Medical Oncology 06/20/21 08/07/23 Zaida Sanchez MD [facility] [place] [address] Consulting Physician Internal Medicine 05/19/21 Emerald Palomo MD [facility] [place] [address] Consulting Physician Gastroenterology, Hepatology and Nutrition 11/29/22
[2023-09-08 12:51] LABS: SARS-CoV-2 Antigen Rapid Res Negative (Negative)
[2023-09-08 16:07] LABS: Specific Gravity 1.029 (1.005-1.030); Urine Bacteria <20 /HPF (<20); Urine Bilirubin NEGATIVE (Negative); Urine Blood Negative (Negative); Urine Clarity Clear (Clear); Urine Color Yellow (Yellow); Urine Glucose NEGATIVE (Negative); Urine Mucus 1+ /HPF (None Seen); Urine Protein 2+ (Negative); Urine RBC <5 /HPF (None Seen); Urine Urobilinogen Normal (Normal); Urine pH 5.5 (5.0-7.0)
--- NOTE | 2023-09-08 16:14 | RAD REPORT ---
EXAM DESCRIPTION: RAD - Chest Single View - 09/08/2023 3:57 pm CLINICAL HISTORY: FEVER COMPARISON: No comparisons FINDINGS: Lines: None. Lungs: No evidence of edema or pneumonia. Pleural: No significant pleural effusions or pneumothorax. Cardiac: The heart size is within normal limits. Mediastinum: Within normal limits. Bones: No acute fractures. Other: None IMPRESSION: No acute cardiopulmonary disease.
--- NOTE | 2023-09-08 16:58 | ER ---
Nurse's Notes [facility] Name: Darlin Negrete Age: 82 yrs Sex: Female : 1940 Arrival Date: 09/08/2023 Time: 12:09 Bed 17 Private MD: Diagnosis: Chills (without fever) Presentation: 09/08 12:17 Chief complaint: Spouse and/or significant other states: patient started shaking and ko1 couldn't even walk it was so bad. Coronavirus screen: At this time, the client does not indicate any symptoms associated with coronavirus-19. Ebola Screen: No symptoms or risks identified at this time. Initial Sepsis Screen: Does the patient meet any 2 criteria? No. Patient's initial sepsis screen is negative. Does the patient have a suspected source of infection? No. Patient's initial sepsis screen is negative. Risk Assessment: Do you want to hurt yourself or someone else? Patient reports no desire to harm self or others. Onset of symptoms was September 08, 2023. 12:17 Method Of Arrival: Wheelchair ko1 12:17 Acuity: MELANIE 3 ko1 Triage Assessment: 12:20 General: Appears in no apparent distress. Behavior is calm, cooperative, appropriate ko1 for age. Pain: Denies pain. Neuro:. Historical: - Allergies: 12:20 No Known Allergies; ko1 - Home Meds: 17:08 atorvastatin 80 mg Oral tab 1 tab once daily [Active]; metoprolol succinate 25 mg oral tl4 Tablet, Extended Release 24 hr 1 tab daily [Active]; - PMHx: 12:20 Hypertensive disorder; Dementia; Carcinoma in situ of colon; ko1 - Immunization history:: Adult Immunizations up to date. - Social history:: Smoking status: Patient denies any tobacco usage or history of. Screenin:14 [facility] ED Fall Risk Assessment (Adult) History of falling in the last 3 months, bp including since admission No falls in past 3 months (0 pts) Confusion or Disorientation No (0 pts) Intoxicated or Sedated No (0 pts) Impaired Gait No (0 pts) Mobility Assist Device Used No (0 pt) Altered Elimination No (0 pt) Score/Fall Risk Level 0 - 2 = Low Risk Oriented to surroundings, Maintained a safe environment, Educated pt \T\ family on fall prevention, incl call for assistance when getting out of bed, Assessed \T\ reinforced patient's understanding of fall precautions, Provided non-skid footwear, Hourly rounding (assess needs \T\ fall precautionary measures) done, Used ambulatory aids as needed (educated on \T\ assisted with), Used gait belt as appropriate. Abuse screen: Denies threats or abuse. Denies injuries from another. Nutritional screening: No deficits noted. Tuberculosis screening: No symptoms or risk factors identified. Assessment: 13:09 General: Appears uncomfortable, Behavior is cooperative. Pain: Denies pain. Neuro: No bp deficits noted. Denies weakness dizziness, numbness headache. Cardiovascular: No deficits noted. Denies chest pain, diaphoresis, lightheadedness, palpitations. Respiratory: No deficits noted. Breath sounds are clear bilaterally. Denies cough, shortness of breath. GI: No deficits noted. No signs and/or symptoms were reported involving the gastrointestinal system. : No deficits noted. No signs and/or symptoms were reported regarding the genitourinary system. EENT: No deficits noted. No signs and/or symptoms were reported regarding the EENT system. Derm: No deficits noted. No signs and/or symptoms reported regarding the dermatologic system. 14:07 Reassessment: No changes from previously documented assessment. Patient and/or family bp updated on plan of care and expected duration. Pain level reassessed. Patient is alert, oriented x 3, equal unlabored respirations, skin warm/dry/pink. Vital Signs: 12:17 BP 136 / 67; Pulse 87; Resp 16; Temp 100.4; Pulse Ox 98% ; ko1 13:30 BP 109 / 51; Pulse 77; Resp 16; Pulse Ox 96% on R/A; tl4 14:30 BP 129 / 44; Pulse 88; Resp 18; Pulse Ox 98% on R/A; tl4 15:27 BP 123 / 51; Pulse 74; Resp 16; Pulse Ox 97% on R/A; bp 15:57 BP 123 / 50; Pulse 86; Resp 16; Pulse Ox 97% on R/A; bp 16:57 BP 112 / 48; Pulse 68; Resp 16; Temp 99.1(O); Pulse Ox 95% ; Pain 0/10; bp 16:57 Pain Scale: Adult bp ED Course: 12:12 Patient arrived in ED. im 12:16 [facility] Bello [facility]-C [facility]. kb 12:16 Gaurang Cárdenas MD is Attending Physician. kb 12:20 Triage completed. ko1 12:20 Arm band placed on right wrist. Patient placed in an exam room, on a stretcher, on ko1 pulse oximetry, Patient notified of wait time. 12:33 Flu Sent. ds4 12:33 Urinalysis w/ reflexes Sent. ds4 12:47 Suresh Schofield, RN is Primary Nurse. bp 13:14 Patient has correct armband on for positive identification. Placed in gown. Bed in low bp position. Call light in reach. Side rails up X 1. Provided Education on: ed process. Client placed on continuous cardiac and pulse oximetry monitoring. NIBP monitoring applied. Door closed. Noise minimized. Lights dimmed. Moved to private room. Warm blanket given. 13:15 No provider procedures requiring assistance completed. bp 15:56 Chest Single View XRAY Sent. bp 15:57 Straight cath inserted, using sterile technique, 16 Fr. Specimen obtained. Patient bp tolerated well. 15:59 Chest Single View XRAY In Process Unspecified. EDMS 17:10 Patient did not have IV access during this emergency room visit. tl4 Administered Medications: 13:09 Drug: Acetaminophen PO 650 mg PO once Route: PO; bp 13:58 Follow up: Response: No adverse reaction bp Medication: 13:12 VIS not applicable for this client. bp Outcome: 16:58 Discharge ordered by MD. kb 17:10 Discharged to home via wheelchair, with family, tl4 17:10 Condition: stable 17:10 Discharge instructions given to patient, family, Instructed on discharge instructions, follow up and referral plans. Demonstrated understanding of instructions, follow-up care, 17:29 Patient left the ED. tl4 Signatures: Dispatcher [employer] EDMO Chary Bello FNP-C FNP-Gurdeep Middleton ds4 Suresh Schofield, RN RN bp Sharron Veliz, RN RN ko1 Adia Girard im Nolberto Jones RN RN tl4
--- NOTE | 2023-09-08 16:58 | EDPHYS ---
Physician Documentation [facility] Name: Darlin Negrete Age: 82 yrs Sex: Female : 1940 Arrival Date: 09/08/2023 Time: 12:09 Bed 17 Private MD: ED Physician Gaurang Cárdenas HPI: 09/08 13:36 This 82 yrs old Female presents to ER via Wheelchair with complaints of Tremors. 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 Denies any other symptoms including cough, congestion, abd pain, n/v/d, chest pain, shortness of breath. Historical: - Allergies: 12:20 No Known Allergies; ko1 - Home Meds: 17:08 atorvastatin 80 mg Oral tab 1 tab once daily [Active]; metoprolol succinate 25 mg oral tl4 Tablet, Extended Release 24 hr 1 tab daily [Active]; - PMHx: 12:20 Hypertensive disorder; Dementia; Carcinoma in situ of colon; ko1 - Immunization history:: Adult Immunizations up to date. - Social history:: Smoking status: Patient denies any tobacco usage or history of. ROS: 13:36 Respiratory: Negative for shortness of breath, cough, wheezing, and pleuritic chest kb pain, 13:36 Constitutional: Positive for chills, 13:36 All other systems are negative, Exam: 13:36 Constitutional: This is a well developed, well nourished patient who is awake, alert, kb and in no acute distress. Head/Face: Normocephalic, atraumatic. ENT: Moist Mucous membranes Cardiovascular: Regular rate Respiratory: Respirations even and unlabored. No increased work of breathing. Talking in full sentences Abdomen/GI: Soft, non-tender. No distention Skin: Warm, dry with normal turgor. Normal color. MS/ Extremity: Pulses equal, no cyanosis. Neurovascular intact. Full, normal range of motion. Neuro: Awake and alert, GCS 15, oriented to person, place, time, and situation. Moves all extremities. Normal gait. Vital Signs: 12:17 BP 136 / 67; Pulse 87; Resp 16; Temp 100.4; Pulse Ox 98% ; ko1 13:30 BP 109 / 51; Pulse 77; Resp 16; Pulse Ox 96% on R/A; tl4 14:30 BP 129 / 44; Pulse 88; Resp 18; Pulse Ox 98% on R/A; tl4 15:27 BP 123 / 51; Pulse 74; Resp 16; Pulse Ox 97% on R/A; bp 15:57 BP 123 / 50; Pulse 86; Resp 16; Pulse Ox 97% on R/A; bp 16:57 BP 112 / 48; Pulse 68; Resp 16; Temp 99.1(O); Pulse Ox 95% ; Pain 0/10; bp 16:57 Pain Scale: Adult bp MDM: 12:16 Patient medically screened. kb 13:38 Differential Diagnosis: Other flu, covid, uri, uti. Data reviewed: vital signs, nurses kb notes. Historians other than the Patient: Spouse/Significant Other: . 16:58 Counseling: I had a detailed discussion with the patient and/or guardian regarding the kb historical points, exam findings, and any diagnostic results supporting the discharge/admit diagnosis, lab results, radiology results, the need for outpatient follow up, a family practitioner, to return to the emergency department if symptoms worsen or persist or if there are any questions or concerns that arise at home. 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 No abd tenderness, resp even and unlabored, lungs clear bilaterally. VSS. Pt and educated on return precautions and need for follow up with PCP. Verbal understanding received. . 09/08 12:25 Order name: Flu; Complete Time: 13:08 kb 09/08 12:25 Order name: SARS-COV-2 Antigen Rapid; Complete Time: 12:51 kb 09/08 12:25 Order name: Urinalysis w/ reflexes; Complete Time: 16:10 kb 09/08 15:24 Order name: Chest Single View XRAY; Complete Time: 16:15 kb 09/08 14:26 Order name: Vital Signs; Complete Time: 15:27 kb 09/08 14:28 Order name: Straight Cath; Complete Time: 15:56 kb 09/08 16:11 Order name: Vital Signs: recheck temp please; Complete Time: 16:57 kb Administered Medications: 13:09 Drug: Acetaminophen PO 650 mg PO once Route: PO; bp 13:58 Follow up: Response: No adverse reaction bp Disposition: 18:32 Co-signature as Attending Physician, Gaurang Cárdenas MD I reviewed the patient's care rt provided by the Advanced Practice Provider and agree with the diagnosis and treatment plan. Disposition Summary: 09/08/23 16:58 Discharge Ordered Notes: Location: Home kb Condition: Stable kb Diagnosis - Chills (without fever) kb Followup: kb - With: Emergency Department - When: As needed - Reason: Worsening of condition Followup: kb - With: Private Physician - When: 2 - 3 days - Reason: Recheck today's complaints, Continuance of care, Re-evaluation by your physician Discharge Instructions: - Discharge Summary Sheet kb - Fever, Adult, [id number] kb Forms: - Medication Reconciliation Form kb - Thank You Letter kb - Antibiotic Education kb - Prescription Opioid Use kb - Patient Portal Instructions kb - Leadership Thank You Letter kb Signatures: Dispatcher [employer] EDWA Chary Bello, COMPUTER RECYCLING WORKER-C COMPUTER RECYCLING WORKER-Suresh Jameson RN RN bp Sharron Veliz, RN RN ko1 Gaurang Cárdenas MD MD rt Nolberto Jones RN RN tl4
[2023-09-08 17:41] VITALS: BP 112/48; TEMP 99.1; O2SAT 95
== END ==
LOC: ER 12:09
DX: R68.83 Chills (without fever) (principal); Z11.52 Encounter for screening for COVID-19; I10 Essential (primary) hypertension; F03.90 Unspecified dementia, unspecified severity, without behavioral disturbance, psychotic disturbance, mood disturbance, and anxiety
CPT/HCPCS: 36415; 71045; 81001; 87804; 87811